=== PATIENT | male | born 1935 | race Caucasian/White ===

== ENCOUNTER → 2016-09-28 | Outpatient (CLI) | payer MEDICARE ==
[~2016-09-28] MED LIST: REGADENOSON 0.4 MG/5 ML SYRINGE ONE
== END | disposition home or self-care (01) ==
LOC: CFH 07:56
PROVIDERS: ATTEND Internal Medicine Cardiovascular Disease
DX: I25.89 Other forms of chronic ischemic heart disease (principal); I10 Essential (primary) hypertension; I25.10 Atherosclerotic heart disease of native coronary artery without angina pectoris; Z95.5 Presence of coronary angioplasty implant and graft
CPT/HCPCS: 78452; 93017; A9502; J2785

== ENCOUNTER → 2016-11-17 | Day surgery (SDC) | payer MEDICARE ==
[2016-11-16 10:58] VITALS: BP 157/86
[2016-11-16 11:39] LABS: BLOOD UREA NITROGEN 20 mg/dL (7-18)
[~2016-11-17] VITALS: Ht 170.2 cm; Wt 84.1 kg
[~2016-11-17] MED LIST changes: +ACETAMINOPHEN 325 MG TABLET PO PRN; +ALPR1TAB6 PO; +AMLO2.5T PO; +ASPIRIN 325 MG TABLET EC ONE; +ASPIRIN 325 MG TABLET EC PO ONE; +ATOR80TA75 PO; +BISACODYL 10 MG SUPP PR PRN; +BISACODYL 5 MG EC TABLET PO PRN; +BIVALIRUDIN 250 MG ONE; +CLOP75TA PO; +ESCI20TA PO; +FENTANYL PF 100 MCG/2ML ONE; +HEPARIN 1,000 UNITS/ML, 10ML ONE; +LABE300T PO; +LANS15CA5 PO; +LEVO100T5 PO; +LIDOCAINE 2%, 20ML ONE; +LISI-167 PO; +METF500T4 PO; +MIDAZOLAM 1 MG/ML, 5ML ONE; +NITR0.4T8 SL; +ONDANSETRON 2MG/ML, 2ML IVPush PRN; -REGADENOSON 0.4 MG/5 ML SYRINGE ONE; +SODIUM CHLORIDE 0.9% 1,000 ML IV SCH; +TICAGRELOR 90 MG TABLET ONE; +TRIA0.2517 PO; +VERAPAMIL 2.5 MG/ML, 2ML ONE; +ZOLPIDEM 5MG TABLET PO PRN
== END | disposition home or self-care (01) ==
LOC: CACL 10:19
PROVIDERS: ATTEND Internal Medicine Cardiovascular Disease
DX: I25.119 Atherosclerotic heart disease of native coronary artery with unspecified angina pectoris (principal); I10 Essential (primary) hypertension; E11.9 Type 2 diabetes mellitus without complications; I34.0 Nonrheumatic mitral (valve) insufficiency; E78.5 Hyperlipidemia, unspecified; G47.36 Sleep related hypoventilation in conditions classified elsewhere; H91.90 Unspecified hearing loss, unspecified ear; F17.200 Nicotine dependence, unspecified, uncomplicated; Z95.5 Presence of coronary angioplasty implant and graft; Z79.01 Long term (current) use of anticoagulants; Z79.84 Long term (current) use of oral hypoglycemic drugs
CPT/HCPCS: 36415; 71020; 80048; 85025; 85610; 85730; 93005; 93458; 99152; C1769; C1894; J1644; J2250; J3010; J3490; Q9967; J0583